=== PATIENT | male | born 1960 | race Caucasian/White ===

== ENCOUNTER 2020-05-04 22:34 | Emergency (ER) | payer OTHER ==
[~2020-05-04] VITALS: Ht 177.8 cm; Wt 127.0 kg
[2020-05-04] MEDS ORDERED: ATEN100 PO (22:55)
[2020-05-04] MEDS ORDERED: LISINOPRIL-HCT1 EACH PO (22:55)
== END 2020-05-04 23:58 | disposition home or self-care (01) ==
LOC: ER 22:34
DX: U07.1 COVID-19 (principal); R06.02 Shortness of breath; R50.9 Fever, unspecified; R05 Cough; I10 Essential (primary) hypertension; Z79.899 Other long term (current) drug therapy
CPT/HCPCS: 99282